=== PATIENT | male | born 1965 | race Caucasian/White ===

== ENCOUNTER 2016-06-13 15:17 | Inpatient (IN) | payer OTHER ==
[2016-06-13 16:23] LABS: BILIRUBIN 1+ mg/dL (NEGATIVE); BLOOD 2+ Ery/uL (NEGATIVE); CLARITY CLEAR (CLEAR); COLOR YELLOW (YELLOW); GLUCOSE (U) NORMAL (NORMAL); KETONE (U) NEGATIVE (NEGATIVE); LEUKOCYTES 1+ Leu/uL (NEGATIVE); NITRITE NEGATIVE (NEGATIVE); PROTEIN 2+ mg/dL (NEGATIVE); SPECIFIC GRAVITY 1.025 (1.001-1.030); UROBILINOGEN >=8.0 mg/dL (0.2-1.0); pH 5.5 (5.0-9.0)
[2016-06-13 16:30] LABS: BACTERIA 2+; URINARY WBC 20-50
[2016-06-13 16:41] LABS: ALBUMIN 3.4 g/dL (3.5-5.0); BILIRUBIN - TOTAL 2.1 mg/dL (0.1-1.0); GLOBULIN (CALCULATION) 4.4 g/dL (2.2-4.2); POTASSIUM 3.6 mmol/L (3.5-5.1); TOTAL PROTEIN 7.8 g/dL (6.4-8.3)
[2016-06-13 17:01] LABS: HCT 46.3 % (42.0-52.0); HGB 15.6 g/dl (13.2-18.0); MCH 29.8 pg (25.0-31.0); MCHC 33.7 g/dL (32.0-36.0); MCV 88.4 fL (78.0-100.0); RBC 5.24 M/uL (4.70-6.00)
[2016-06-13 17:02] LABS: PLT 96 K/uL (150-400)
[2016-06-13 17:03] LABS: WBC 8.5 K/uL (4.0-10.5)
[2016-06-13 17:22] LABS: LACTIC ACID 3.1 mmol/L (0.5-2.2)
[2016-06-14 04:15] LABS: CREATININE 1.9 mg/dL (0.7-1.2); POTASSIUM 3.4 mmol/L (3.5-5.1)
[2016-06-14 05:13] LABS: HGB 12.8 g/dl (13.2-18.0); MCH 30.3 pg (25.0-31.0); MCHC 34.6 g/dL (32.0-36.0); MCV 87.7 fL (78.0-100.0); MPV 12.4 fL (6.0-9.5); RBC 4.22 M/uL (4.70-6.00); RDW 13.3 % (11.5-14.0); WBC 7.6 K/uL (4.0-10.5)
== END 2016-06-14 14:48 | disposition other institution (70) | DRG 872 ==
LOC: FER 15:17 → FTCU 17:12
PROVIDERS: Nurse Practitioner; ADMIT Internal Medicine
DX: A41.9 Sepsis, unspecified organism (principal); N17.9 Acute kidney failure, unspecified; E87.2 Acidosis; D69.6 Thrombocytopenia, unspecified; G62.9 Polyneuropathy, unspecified; N39.0 Urinary tract infection, site not specified; N13.2 Hydronephrosis with renal and ureteral calculous obstruction; I25.10 Atherosclerotic heart disease of native coronary artery without angina pectoris; E11.9 Type 2 diabetes mellitus without complications; I10 Essential (primary) hypertension; Z79.02 Long term (current) use of antithrombotics/antiplatelets; Z79.84 Long term (current) use of oral hypoglycemic drugs; Z79.82 Long term (current) use of aspirin; Z79.899 Other long term (current) drug therapy
CPT/HCPCS: 36415; 71020; 76770; 80048; 80053; 81001; 82962; 83605; 85025; 87077; 87088; 87186; 87804; 87899; C9113; G0378; J2270

== ENCOUNTER → 2021-03-10 | Day surgery (SDC) | payer OTHER ==
[~2021-03-10] VITALS: Ht 185.4 cm; Wt 117.9 kg
[~2021-03-10] MED LIST: 8 HOUR650 MG PO; AMITRIPTYLINE H25 MG PO; AMLODIPINE BES2.5 MG PO; ASPIRIN EC81 MG PO; BACTROBAN NASAL1 GM; CLOPIDOGREL75 MG PO; ELAVIL25 MG PO; GABAPENTIN800 MG PO; LIVALO4 MG PO; METOPROLOL SUCC50 MG PO; NORCO 5/3251 EACH PO; TRULICITY3 MG/0.5 M SC
[2021-03-10 11:29] LABS: BUN/CREAT RATIO (CALC) 11.6 RATIO; CREATININE 0.69 mg/dL (0.67-1.17); POTASSIUM 3.5 mmol/L (3.5-5.1)
== END | disposition home or self-care (01) ==
LOC: FAS 10:06
PROVIDERS: Anesthesiology
DX: M48.061 Spinal stenosis, lumbar region without neurogenic claudication (principal); M54.16 Radiculopathy, lumbar region; E11.42 Type 2 diabetes mellitus with diabetic polyneuropathy; I25.10 Atherosclerotic heart disease of native coronary artery without angina pectoris; I25.2 Old myocardial infarction; E11.22 Type 2 diabetes mellitus with diabetic chronic kidney disease; I12.9 Hypertensive chronic kidney disease with stage 1 through stage 4 chronic kidney disease, or unspecified chronic kidney disease; N18.9 Chronic kidney disease, unspecified; F32.A Depression, unspecified; E66.9 Obesity, unspecified; Z95.5 Presence of coronary angioplasty implant and graft; Z79.02 Long term (current) use of antithrombotics/antiplatelets; Z79.82 Long term (current) use of aspirin
CPT/HCPCS: 36415; 80048; 93005; C1778; C1787; C1820; J2001; J2250; J2704; J3010; J3370; J7040; J7120